=== PATIENT | male | born 1970 | race African-American/Black ===

== ENCOUNTER 2017-06-09 10:07 | Emergency (ER) | payer BC, OTHER ==
[~2017-06-09] VITALS: Ht 175.3 cm; Wt 70.3 kg
[2017-06-09 10:08] VITALS: BP 122/79
[2017-06-09] MEDS ORDERED: IBUPROFEN 200200 M1 PO (10:13)
[2017-06-09] MEDS ORDERED: HYDROCODONE-AP1 EAC6 PO (10:28)
[2017-06-09] MEDS ORDERED: PREDNISONE 20 M20 MG PO (10:28)
== END 2017-06-09 11:08 | disposition home or self-care (01) ==
LOC: ER 10:07
DX: S46.001A Unspecified injury of muscle(s) and tendon(s) of the rotator cuff of right shoulder, initial encounter (principal); M54.12 Radiculopathy, cervical region; X58.XXXA Exposure to other specified factors, initial encounter; Y93.89 Activity, other specified; Y92.89 Other specified places as the place of occurrence of the external cause; Y99.0 Civilian activity done for income or pay